=== PATIENT | male | born 1960 | race Caucasian/White ===

== ENCOUNTER 2018-08-15 23:45 | Emergency (ER) | payer OTHER ==
[~2018-08-15] VITALS: Ht 172.7 cm; Wt 92.0 kg
[2018-08-16] MEDS ORDERED: IBUP-1986 PO (00:23)
[2018-08-16] MEDS ORDERED: ibuprofen tablet 400 MG TABLET PO ONE (00:25)
[2018-08-16 00:38] VITALS: BP 162/90
== END 2018-08-16 00:41 | disposition home or self-care (01) ==
LOC: ER 23:46
DX: S52.692A Other fracture of lower end of left ulna, initial encounter for closed fracture (principal); F17.200 Nicotine dependence, unspecified, uncomplicated; W22.8XXA Striking against or struck by other objects, initial encounter; Y93.89 Activity, other specified; Y92.89 Other specified places as the place of occurrence of the external cause; Y99.9 Unspecified external cause status
CPT/HCPCS: 29125; 73090; 99283